=== PATIENT | female | born 1990 | race Caucasian/White ===

== ENCOUNTER 2018-06-10 06:26 | Inpatient (IN) ==
[2018-06-10] MEDS ORDERED: Sod Chloride 0.9% Inj 1,000 ML IV.CONT SCH (07:15)
[2018-06-10 07:29] LABS: Baso % (Auto) 0.4 % (0.0-2.0); Eos # (Auto) 0.1 th/mm3 (0.0-0.4); Hematocrit 43.7 % (35.0-46.0); Hemoglobin 15.3 gm/dL (11.6-15.3); Lymph % (Auto) 27.8 % (9.0-44.0); Mean Corpuscular HGB Conc 34.9 % (32.0-36.0); Mean Corpuscular Hemoglobin 32.7 pg (27.0-34.0); Mean Corpuscular Volume 93.7 fL (80.0-100.0); Mean Platelet Volume 8.1 fL (7.0-11.0); Mono % (Auto) 8.9 % (0.0-8.0); Neut # (Auto) 6.7 th/mm3 (1.8-7.7); Neut % (Auto) 61.9 % (16.0-70.0); Platelet Count 229 th/mm3 (150-450); Red Blood Count 4.66 mil/mm3 (4.00-5.30); Red Cell Distribution Width 13.6 % (11.6-17.2); White Blood Count 10.8 th/mm3 (4.0-11.0)
--- NOTE | 2018-06-10 07:29 | CT ---
EXAM DATE: 06/10/2018 7:22 AM EST AGE/SEX: 28 years / Female INDICATIONS: Stroke alert, right extremity weakness. CLINICAL DATA: This is the patient's initial encounter. Patient reports that signs and symptoms have been present for 1 day and indicates a pain score of Nonresponsive. MEDICAL/SURGICAL HISTORY: Non-responsive. Non-responsive. RADIATION DOSE: 56.35 CTDI (mGy) COMPARISON: [facility] [place], CT BRAIN W/O CONTRAST, 10/31/2012. . TECHNIQUE: CT of the head without contrast. Using automated exposure control and adjustment of the mA and/or kV according to patient size, radiation dose was kept as low as reasonably achievable to ob tain optimal diagnostic quality images. DICOM format image data is available electronically for revi ew and comparison. FINDINGS: Cerebrum: The ventricles are normal for age. No evidence of midline shift, mass lesion, hemorrhage or acute infarction. No extraaxial fluid collections are seen. Posterior Fossa: The cerebellum and brainstem are intact. The 4th ventricle is midline. The cerebe llopontine angle is unremarkable. Extracranial: The visualized portion of the orbits is intact. Skull: The calvaria is intact. No evidence of skull fracture. CONCLUSION: No acute intracranial findings Report was called by [Yanci to Luis Armando at 7:26 AM ] Electronically signed by: Denny Pete MD Board Certified Radiologist 06/10/2018 7:28 AM EST
--- NOTE | 2018-06-10 07:49 | CT ---
EXAM DATE: 06/10/2018 7:41 AM EST AGE/SEX: 28 years / Female INDICATIONS: Stroke alert, right extremity weakness. CLINICAL DATA: This is the patient's initial encounter. Patient reports that signs and symptoms have been present for 1 day and indicates a pain score of Nonresponsive. MEDICAL/SURGICAL HISTORY: Non-responsive. Non-responsive. RADIATION DOSE: 9.76 CTDI (mGy) ; Combined studies COMPARISON: [facility], CTA NECK W CONTRAST W 3D, 06/10/2018. . TECHNIQUE: Volumetric scanning was performed using a multi-row detector CT scanner during bolus infu lester of 75 ml Visipaque 320 (iodixanol) nonionic water-soluble contrast as a cumulative dose for mul tiple exams. The data was post processed with a variety of visualization algorithms including full volume maximum intensity projection, multi-planar sliding thin slab reformation, curved planar reform ation, and surface rendering techniques. Using automated exposure control and adjustment of the mA a nd/or kV according to patient size, radiation dose was kept as low as reasonably achievable to obtain optimal diagnostic quality images. DICOM format image data is available electronically for review a nd comparison. FINDINGS: There is excellent visualization of the major intracranial arteries out to the second-order branch ve ssels. There is no evidence for aneurysm, vessel truncation or stenosis, and no evidence for vascula r malformation. CONCLUSION: 1. Unremarkable CTA examination of the head. Specifically, no evidence for large vessel occlusion. Report was called by [ ]Dr. Laws to Dr. Patel at 7:45 AM. Electronically signed by: Ulises Woo MD Board Certified Radiologist 06/10/2018 7:47 AM MALIHA Wren
--- NOTE | 2018-06-10 08:07 | CT ---
EXAM DATE: 06/10/2018 8:02 AM EST AGE/SEX: 28 years / Female INDICATIONS: Stroke alert, right extremity weakness. CLINICAL DATA: This is the patient's initial encounter. Patient reports that signs and symptoms have been present for 1 day and indicates a pain score of Nonresponsive. MEDICAL/SURGICAL HISTORY: Non-responsive. Non-responsive. RADIATION DOSE: 9.76 CTDI (mGy) ; Combined studies COMPARISON: No prior exams available for comparison. TECHNIQUE: Volumetric scanning was performed using a multirow detector CT scanner during bolus infus ion of 75 ml Visipaque 320 (iodixanol) nonionic water-soluble contrast as a cumulative dose for mult iple exams. The data was postprocessed with a variety of visualization algorithms including full-vo lume maximum intensity projection, multiplanar sliding thin-slab reformation, curved-planar reformati on, and surface-rendering techniques. Using automated exposure control and adjustment of the mA and/ or kV according to patient size, radiation dose was kept as low as reasonably achievable to obtain op timal diagnostic quality images. DICOM format image data is available electronically for review and comparison. Percent stenosis is calculated using the diameter of the stenotic region over the diameter of the nor mal distal internal carotid artery. FINDINGS: Aortic Arch: The left vertebral artery arises directly from the aortic arch as a variant of normal. The arch vessels are widely patent. Right Carotid: The common carotid artery is intact. The carotid bulb has a normal configuration wit hout ulceration or narrowing. The internal carotid artery lumen is smooth without stenosis. The ext ernal carotid artery is intact. Left Carotid: The common carotid artery is intact. The carotid bulb has a normal configuration with out ulceration or narrowing. The internal carotid artery lumen is smooth without stenosis. The exte rnal carotid artery is intact. Vertebrals: The vertebral arteries are patent bilaterally, right side dominant. No stenotic lesions are seen. CONCLUSION: Negative CTA Carotid. Electronically signed by: Denny Pete MD Board Certified Radiologist 06/10/2018 8:05 AM EST
[2018-06-10 08:11] LABS: Activated Partial Thrombo Time 31.2 sec (23.4-31.7); INR 1.1 Ratio; Prothrombin Time 11.1 sec (9.8-11.6)
[2018-06-10 08:20] LABS: Anion Gap 6 meq/L (5-15); Blood Urea Nitrogen 8 mg/dL (7-18); Calcium 8.2 mg/dL (8.5-10.1); Carbon Dioxide 23.2 meq/L (21.0-32.0); Chloride 111 meq/L (98-107); Glomerular Filtration Rate 89 mL/min (>89); Glucose,Random 133 mg/dL (74-106); Potassium 3.5 meq/L (3.5-5.1); Sodium 140 meq/L (136-145)
[2018-06-10 08:25] LABS: Creatine Kinase 67 U/L (26-192)
[2018-06-10 08:27] LABS: Bacteria,Urine Occasional /hpf; Bilirubin,Urine Negative (Negative); Color,Urine Yellow (Yellw/Straw); Glucose,Urine (UA) Negative (Negative); Leukocyte Esterase,Urine Negative (Negative); Nitrite,Urine Negative (Negative); Specific Gravity,Urine 1.035 (1.002-1.035); Squamous Epithelial Cell,Urine 17 /hpf (0-5)
[2018-06-10 08:30] LABS: Clarity,Urine Hazy (Clear)
[2018-06-10] MEDS ORDERED: Acetaminophen 325 MG Tablet PO PRN (08:59)
--- NOTE | 2018-06-10 09:07 | MB ---
cc: Brodie Patel MD DATE: 06/10/2018 HISTORY OF PRESENT ILLNESS: This 28-year-old right-handed woman with hypertension. She does take control pills. She has had 1 miscarriage. Otherwise, she has been very healthy. She went to bed fine last night and woke up about 4:30 this morning feeling that her left tongue and face were numb, maybe a little droopy and some weakness on the right side and imbalance. She had some pain in the right cervical region, but otherwise no headache, chest pain or palpitations. She did vomit several times in the ER here. REVIEW OF SYSTEMS: She denies any history of diabetes, hypercholesterolemia, MD, stent, angioplasty, atrial fibrillation, Coumadin cardiac problems, chest pain, palpitations, renal, hepatic, pulmonary disease, thyroid disease, lupus, ulcer, cancer, seizure, stroke. SOCIAL HISTORY: Nonsmoker, occasional drinker. No drugs. Lives with her boyfriend. FAMILY HISTORY: Positive for cancer. Negative for seizure, negative for stroke. Positive for miscarriage in her grandmother. No history of blood clots otherwise. MEDICATIONS AT HOME: 1. Z-Zen. 2. Inhaler. 3. Lexapro. 4. Labetalol dose is unsure. 5. She does not take an aspirin a day or any blood thinners. PHYSICAL EXAMINATION: VITAL SIGNS: On exam, sinus rhythm. Blood pressure 180/120, initially 198/115 to 175/84. There were no carotid bruits. HEART: Regular rate and rhythm. I do not detect a murmur. She is minimally obese. NEUROLOGIC: Pupils are equal. Visual porter are full. Extraocular movements intact without nystagmus. Face is symmetric with normal sensation. Tongue was midline. There is no drift. She had normal strength in upper and lower extremities bilaterally. Toes downgoing bilaterally. No clonus. Pinprick was intact throughout. Cannot test on [id number] or [id number]. Speech is fluent. She is not aphasic. NIH stroke scale was 0. LABORATORY DATA: CBC is normal. UA is pending. Basic metabolic profile: Potassium 5.4, otherwise normal. Glucose 119. Coags are normal CTA, CT, and CTA of the neck, head and CAT scan of the brain read as normal by radiology. Review of the films, I do not see any definite abnormality on the CT. It does appear to be normal. CTA of the head looks to be right vertebral dominant. She has a large anterior/inferior cerebellar artery on the right. No major basilar artery abnormality is noted. The left vertebral system appears to be very small. She gets somewhat of a variant with the right MCA trifurcation early. It is not quite as long segment as on the left. Otherwise, read as normal. CT of the neck read as negative. Review of the films, she is right vertebral dominant, not artery is patent all the way up. The left vertebral artery, although patent, is small. I cannot really see it well intracranially. Unclear if it meets the other vertebral around the basilar. The carotid arteries are robust and normal bilaterally. It looks like the left probably ends in pica. She is in sinus rhythm. IMPRESSION: It sounds like possibly a small brainstem infarct. We will check a STAT MRI of the brain and MR venogram, hypercoagulable screen, and further stroke workup. We gave her an aspirin for now. Keep head of bed flat, IV hydration, keep her blood pressure up. Something else such as MS could be considered, considering her age. We will see what the MRI shows. We will have her stop the control pills if this is in fact a stroke. The patient's NIH stroke scale is 0. She has improved since she got in the ER as she was not given tPA. She was also out of the time window for tPA . MD CARLTON Joyce/sandra , 08:30 AM , 08:39 AM
--- NOTE | 2018-06-10 10:09 | ED ---
HPI General Chief Complaint: Neuro Symptoms/Deficit Stated Complaint: Medical Time Seen by Provider: 06/10/18 06:58 Source: patient and family Limitations: no limitations History of Present Illness HPI Narrative: Patient is a 28-year-old female, past medical history significant for hypertension and depression, who presents with complaint of left -sided facial numbness and tingling with aphasia, and right-sided extremity weakness with difficulty walking in addition to dizziness. She woke up with the symptoms. Last known well was approximately 10 or 11 PM when she went to bed. She denies any recent trauma, fever, chills. She states that the numbness to her face has resolved but she is still having some weakness of the right side extremities though this has improved as well. Onset (ago): hour(s) Location: Reports speech, left face, right arm and right leg History of same: No Severity: moderate Quality: Reports weak and tingling Relieving factors: time Exacerbating factors: none On Anticoagulants: No Treatments Prior to Arrival: Reports none Related Data Home Medications Medication Instructions Recorded Confirmed escitalopram oxalate [Lexapro] 10 mg PO HS 01/16/18 06/10/18 Previous Rx's Medication Instructions Recorded albuterol sulfate 2 inh INHALATION Q4-6H PRN #18 g 01/16/18 labetalol 100 mg PO BID #180 tab 01/16/18 Allergies Allergy/AdvReac Type Severity Reaction Status Date / Time No Known Allergies Allergy Verified 06/10/18 07:05 Review of Systems ROS: all other systems reviewed are negative [facility] Medical History Medical History Anxiety (Acute) History of Paz's palsy (Acute) Depression (Acute) Hypertension (Acute) Surgical History Surgical History History of delivery (Acute) Social History Social History Substance History: No History of Abuse Second Hand Smoke Exposure: No Smoking Status: Never smoker How Often Do You Have a Drink Containing Alcohol: 2 to 4 times a month Recent Travel [facility] within the Last 8 Weeks: No Recent Out of Country Travel within the Last 8 Weeks: No Immunization History Tetanus Immunization: <5 Years Exam Narrative Exam Narrative: GENERAL: Well-appearing female in no acute distress SKIN: Focused skin assessment warm/dry. HEAD: Atraumatic. Normocephalic. EYES: Pupils equal and round. No scleral icterus. No injection or drainage. ENT: No nasal bleeding or discharge. Mucous membranes pink and moist. NECK: Trachea midline. No JVD. CARDIOVASCULAR: Regular rate and rhythm. No murmur appreciated. Intact and equal peripheral pulses. RESPIRATORY: No accessory muscle use. Clear to auscultation. Breath sounds equal bilaterally. GASTROINTESTINAL: Abdomen soft, non-tender, nondistended. Hepatic and splenic margins not palpable. MUSCULOSKELETAL: No obvious deformities. No clubbing. No cyanosis. No edema. NEUROLOGICAL: Awake and alert. No obvious cranial nerve deficits. Right-sided extremity weakness with right upper extremity pronator drift. Some dysmetria with the right upper extremity. Slight dysarthria. No numbness. PSYCHIATRIC: Appropriate mood and affect; insight and judgment normal. Course Initial Documented Vital Signs Temperature 98.5 F 06/10/18 06:35 Pulse Rate 82 06/10/18 06:35 Respiratory Rate 16 06/10/18 06:35 Blood Pressure 198/115 H 06/10/18 06:35 Pulse Oximetry 99 06/10/18 06:35 Last Documented Vital Signs Temperature 98.5 F 06/10/18 06:35 Pulse Rate 77 06/10/18 08:20 Respiratory Rate 20 06/10/18 08:20 Blood Pressure 173/84 H 06/10/18 08:20 Pulse Oximetry 99 06/10/18 08:20 NIH Stroke Scale NIH Stroke Scale Level of Consciousness: 0-Alert Orientation Questions: 0-Answers both correct Responds to Commands: 0-Both tasks correct Gaze Eye Movement: 0-Horizontal movement WNL Visual Diaz: 0-No visual field defect Facial Movement: 0-Normal Motor Functions Arm LEFT: 0-No drift Motor Functions Arm RIGHT: 1-Drift before 10 seconds Motor Functions Leg LEFT: 0-No drift Motor Functions Leg RIGHT: 0-No drift Limb Ataxia: 1-Ataxia in one limb Sensory Loss: 0-No sensory loss Best Language: 0-Normal Articulation: 1-Mild dysarthia Extinction or Inattention Sensory: 0-Absent Total: 3 Quality Measure Queries Stroke Last date observed well: 06/09/18 Last time observed well: 23:00 Medical Decision Making MDM Narrative Medical decision making narrative: Patient is a 28-year-old female who presented with neurological complaints. NIH stroke scale is approximately 3 on arrival with last known well within 24 hours thus stroke alert was activated. CT head and CTA's are unremarkable and patient's complaints continued to improve. She is not a candidate for TPA. She was seen and evaluated by Dr. Patel was planned for admission for further evaluation and management. 0718: Spoke with Dr Patel, neurologist. 0726: Radiology stated the CT Head was unremarkable. Medical Screen Exam Complete: Yes Emergency Medical Condition: Yes Differential Diagnosis Differential Diagnosis: Differential diagnosis includes but is not limited to anxiety, cerebrovascular accident, conversion disorder. Medical Records Medical records reviewed: Yes I reviewed the patient's medical records. Lab Data Lab results reviewed: Yes I reviewed the patient's lab results. Result diagrams: 06/10/18 07:13 06/10/18 07:45 Lab Results 06/10/18 06/10/18 06/10/18 Range/Units 07:13 07:25 07:45 WBC 10.8 (4.0-11.0) th/mm3 RBC 4.66 (4.00-5.30) mil/mm3 Hgb 15.3 (11.6-15.3) gm/dL POC Hgb (Calc) 15.0 (11.6-15.3) g/dL Hct 43.7 (35.0-46.0) % POC Hct 44.0 (35-46.0) % MCV 93.7 (80.0-100.0) fL MCH 32.7 (27.0-34.0) pg MCHC 34.9 (32.0-36.0) % RDW 13.6 (11.6-17.2) % Plt Count 229 (150-450) th/mm3 MPV 8.1 (7.0-11.0) fL Neut % (Auto) 61.9 (16.0-70.0) % Lymph % (Auto) 27.8 (9.0-44.0) % Jefferson % (Auto) 8.9 H (0.0-8.0) % Eos % (Auto) 1.0 (0.0-4.0) % Baso % (Auto) 0.4 (0.0-2.0) % Neut # (Auto) 6.7 (1.8-7.7) th/mm3 Lymph # (Auto) 3.0 (1.0-4.8) th/mm3 Jefferson # (Auto) 1.0 H (0.0-0.9) th/mm3 Eos # (Auto) 0.1 (0.0-0.4) th/mm3 Baso # (Auto) 0.0 (0.0-0.2) th/mm3 WBC Differential . Differential Comment Auto diff final PT 11.1 (9.8-11.6) sec INR 1.1 Ratio APTT 31.2 (23.4-31.7) sec POC Sodium 141 (137-144) mmol/L Sodium (136-145) meq/L POC Potassium 5.4 H (3.6-5.0) mmol/L Potassium (3.5-5.1) meq/L POC Chloride 107 (102-111) mmol/L Chloride (98-107) meq/L Carbon Dioxide (21.0-32.0) meq/L Anion Gap (5-15) meq/L POC BUN 9 (5-21) mg/dL BUN (7-18) mg/dL Creatinine (0.50-1.00) mg/dL POC Creatinine 0.6 (0.6-1.3) mg/dL Estimated GFR (>89) mL/min POC Glucose 119 H (68-110) mg/dL Random Glucose (74-106) mg/dL Calcium (8.5-10.1) mg/dL Total Creatine Kinase (26-192) U/L Troponin I (0.02-0.05) ng/mL Beta HCG, Quant (0-5) mIU/mL Urine Color (Yellw/Straw) Urine Clarity (Clear) Urine pH (5.0-8.5) Ur Specific Aurora (1.002-1.035) Urine Protein (Neg-Trace) mg/dL Urine Glucose (UA) (Negative) mg/dL Urine Ketones (Negative) mg/dL Urine Occult Blood (Negative) Urine Nitrate (Negative) Urine Bilirubin (Negative) Urine Urobilinogen (Less than 2) mg/dL Ur Leukocyte Esterase (Negative) Urine RBC (0-3) /hpf Urine WBC (0-5) /hpf Ur Squamous Epith Cells (0-5) /hpf Urine Bacteria (None) /hpf Micro UA Comment Ur Microscopic Review Urine Culture Comments 06/10/18 06/10/18 06/10/18 Range/Units 07:45 07:45 08:05 WBC (4.0-11.0) th/mm3 RBC (4.00-5.30) mil/mm3 Hgb (11.6-15.3) gm/dL POC Hgb (Calc) (11.6-15.3) g/dL Hct (35.0-46.0) % POC Hct (35-46.0) % MCV (80.0-100.0) fL MCH (27.0-34.0) pg MCHC (32.0-36.0) % RDW (11.6-17.2) % Plt Count (150-450) th/mm3 MPV (7.0-11.0) fL Neut % (Auto) (16.0-70.0) % Lymph % (Auto) (9.0-44.0) % Jefferson % (Auto) (0.0-8.0) % Eos % (Auto) (0.0-4.0) % Baso % (Auto) (0.0-2.0) % Neut # (Auto) (1.8-7.7) th/mm3 Lymph # (Auto) (1.0-4.8) th/mm3 Jefferson # (Auto) (0.0-0.9) th/mm3 Eos # (Auto) (0.0-0.4) th/mm3 Baso # (Auto) (0.0-0.2) th/mm3 WBC Differential Differential Comment PT (9.8-11.6) sec INR Ratio APTT (23.4-31.7) sec POC Sodium (137-144) mmol/L Sodium 140 (136-145) meq/L POC Potassium (3.6-5.0) mmol/L Potassium 3.5 (3.5-5.1) meq/L POC Chloride (102-111) mmol/L Chloride 111 H (98-107) meq/L Carbon Dioxide 23.2 (21.0-32.0) meq/L Anion Gap 6 (5-15) meq/L POC BUN (5-21) mg/dL BUN 8 (7-18) mg/dL Creatinine 0.76 (0.50-1.00) mg/dL POC Creatinine (0.6-1.3) mg/dL Estimated GFR 89 (>89) mL/min POC Glucose (68-110) mg/dL Random Glucose 133 H (74-106) mg/dL Calcium 8.2 L (8.5-10.1) mg/dL Total Creatine Kinase 67 (26-192) U/L Troponin I Less than 0.02 L (0.02-0.05) ng/mL Beta HCG, Quant Less than 1 (0-5) mIU/mL Urine Color Yellow (Yellw/Straw) Urine Clarity Hazy H (Clear) Urine pH 6.0 (5.0-8.5) Ur Specific Aurora 1.035 (1.002-1.035) Urine Protein Negative (Neg-Trace) mg/dL Urine Glucose (UA) Negative (Negative) mg/dL Urine Ketones Negative (Negative) mg/dL Urine Occult Blood Negative (Negative) Urine Nitrate Negative (Negative) Urine Bilirubin Negative (Negative) Urine Urobilinogen Less than 2 (Less than 2) mg/dL Ur Leukocyte Esterase Negative (Negative) Urine RBC Less than 1 (0-3) /hpf Urine WBC Less than 1 (0-5) /hpf Ur Squamous Epith Cells 17 (0-5) /hpf Urine Bacteria Occasional H (None) /hpf Micro UA Comment Culture not ind Ur Microscopic Review Not Reportable Urine Culture Comments Culture not ind Imaging Data Attestation: I personally reviewed and interpreted this imaging study as follows : My impression: No large intracranial hemorrhage. Radiologist's impression: Head CT 06/10/18 07:11 CONCLUSION: No acute intracranial findings Report was called by [Yanci Durán at 7:26 AM ] Head CTA 06/10/18 07:11 CONCLUSION: 1. Unremarkable CTA examination of the head. Specifically, no evidence for large vessel occlusion. Report was called by [ ]Dr. Laws to Dr. Patel at 7:45 AM. Neck CTA 06/10/18 07:11 CONCLUSION: Negative CTA Carotid. ECG Data EKG Prior to Arrival: No Attestation: I personally reviewed and interpreted this ECG as follows: (Sinus rhythm at a rate of [address] or T wave changes.) Discharge Plan Discharge Disposition Patient Disposition: ED Admit(ED Internal Use Only) Discharge Condition Condition: Stable Discharge Order Discharge Orders: ED Use Only Admit Order (Routine); Ordered 06/10/18 Ordered By: Ann Durán Discharge Details Diagnosis: Transient cerebral ischemia Physicians Team ED Provider: Ann Durán Primary Care Provider: Primary Care Ana Robb Attending Provider: Sheri Archer Discharge Interventions Interventions: Vital Signs Last Done: 06/10/18 08:20 Status ED Status: Admitted Observation Patient
[2018-06-10] MEDS: Enoxaparin Inj 30 MG/0.3 ML Syringe SQ SCH (10:23)
--- NOTE | 2018-06-10 11:04 | MR ---
EXAM DATE: 06/10/2018 10:58 AM EST AGE/SEX: 28 years / Female INDICATIONS: CVA. Right sided weakness. CLINICAL DATA: This is the patient's initial encounter. Patient reports that signs and symptoms have been present for 1 day and indicates a pain score of 0/10. MEDICAL/SURGICAL HISTORY: Hypertension. section. COMPARISON: [facility] [place], CTA HEAD W CONTRAST W 3D, 06/10/2018. . TECHNIQUE: Multiplanar, multisequence examination of the brain was performed without and with 10 ml G adavist (gadobutrol) contrast as a single exam dose. FINDINGS: Cerebrum: The ventricles are normal for age. No evidence of midline shift, mass lesion, hemorrhage or acute infarction. No extraaxial fluid collections are seen. The pituitary gland and suprasellar cistern are normal in configuration. White Matter: Scattered punctate areas of focal white matter T2 prolongation which are nonspecific h owever given the patient's age, demyelinating process should be considered. Posterior Fossa: Small focus of restricted diffusion in the upper right cerebellar hemisphere Diffusion Imaging: No focal areas of restricted diffusion are seen. No evidence of acute infarction . Extracranial: The visualized portions of the orbits and paranasal sinuses are unremarkable. Post Contrast: No abnormal areas of parenchymal or dural enhancement. No evidence of blood-brain ba rrier breakdown. CONCLUSION: 1. Likely small early subacute right cerebellar infarct 2. Mild patchy white matter signal change Electronically signed by: Denny Pete MD Board Certified Radiologist 06/10/2018 11:03 AM EST
--- NOTE | 2018-06-10 11:13 | MR ---
EXAM DATE: 06/10/2018 11:08 AM EST AGE/SEX: 28 years / Female INDICATIONS: Stroke. Right sided weakness. CLINICAL DATA: This is the patient's initial encounter. Patient reports that signs and symptoms have been present for 1 day and indicates a pain score of 0/10. MEDICAL/SURGICAL HISTORY: Hypertension. section. COMPARISON: [facility] [place], [place] HEAD W & W/O CONTRAST, 06/10/2018. . TECHNIQUE: MR cerebral venography is performed without and with 10 ml Gadavist (gadobutrol) contrast (cumulative dose for multiple exams). Source images, 3D volume MIP, and sliding thin slab MIP recon structions were reviewed. FINDINGS: The dural venous sinuses are patent. The deep cerebral venous structures are patent and intact. Corti vani surface veins are patent. CONCLUSION: Negative Electronically signed by: Denny Pete MD Board Certified Radiologist 06/10/2018 11:12 AM EST
[2018-06-10 11:24] LABS: Folate 14.9 ng/mL (3.1-17.5); Free T4 (Free Thyroxine) 1.18 ng/dL (0.76-1.46); Vitamin B12 456 pg/mL (193-986)
[2018-06-10] MEDS ORDERED: Gadobutrol PF 10 MMOL/10 ML Vial (for RAD) IV.SIG ONE (12:56)
--- NOTE | 2018-06-10 13:05 | P.HPIM ---
History of Present Illness Primary Care Physician: No Primary Care Physician Chief Complaint: weakness left side History of Present Illness: 28-year-old white female presented with acute onset of left-sided facial numbness tingling and aphasia with right sided weakness. Patient was in her normal state of health yesterday, other than having mild sore throat and URI type symptoms, when she woke this morning she noticed left side of her face was numb with tingling difficulty expressing herself and right- sided weakness she presented to the emergency room where her blood pressures were noted to be 198/115. Patient states she has been out of her blood pressure medications for a couple months because her doctor did not refill them. She is been having mild headache and intractable nausea and vomiting currently. Initial CT of the head in the emergency room was unremarked and she is admitted for further neurologic workup. 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 FAMhx: Mother had a TIA Review of Systems Review of Systems: all other systems reviewed are negative [facility] Medical History Medical History Anxiety (Acute) History of Paz's palsy (Acute) Depression (Acute) Hypertension (Acute) Surgical History Surgical History History of delivery (Acute) Social History Social History Substance History: No History of Abuse Second Hand Smoke Exposure: No Smoking Status: Never smoker How Often Do You Have a Drink Containing Alcohol: 2 to 4 times a month Recent Travel in [facility] within the Last 8 Weeks: No Recent Out of Country Travel within the Last 8 Weeks: No Immunization History Tetanus Immunization: <5 Years Medications and Allergies Allergies Allergy/AdvReac Type Severity Reaction Status Date / Time No Known Allergies Allergy Verified 06/10/18 07:05 Home Medications Medication Instructions Recorded Confirmed Type escitalopram oxalate [Lexapro] 10 mg PO HS 01/16/18 06/10/18 History Active Medications: Active Medications Acetaminophen (Tylenol) 650 mg PO Q4H PRN PRN Reason: Temp > 100.4 Al Hydroxide/Mg Hydroxide (Milk Of Magnesia Liq) 30 ml PO Q12H PRN PRN Reason: Mild Constipation Aspirin (Ecotrin) 325 mg PO DAILY [facility] Last Admin: 06/10/18 09:00 Dose: 325 mg Enoxaparin Sodium (Lovenox Inj) 30 mg SQ Q24H [facility] Last Admin: 06/10/18 10:23 Dose: 30 mg Sodium Chloride (Ns Inj) 1,000 mls @ 70 mls/hr IV.CONT .[id number] [facility] Stop: 06/10/18 21:32 Last Admin: 06/10/18 07:42 Dose: 70 mls/hr Lactulose (Lactulose Liq) 30 ml PO DAILY PRN PRN Reason: SEVERE CONSITIPATION Miscellaneous Medication ([facility] [place] [facility] Information) 1 each OTHER UNSCH X1 PRN PRN Reason: PHARMACY DOCUMENTATION Stop: 06/11/18 08:29 Ondansetron HCl (Zofran Inj) 4 mg IV.PUSH Q6H PRN PRN Reason: NAUSEA OR VOMITING Last Admin: 06/10/18 09:08 Dose: 4 mg Prochlorperazine Edisylate (Compazine Inj) 10 mg IV.PUSH Q6H PRN PRN Reason: NAUSEA OR VOMITING Last Admin: 06/10/18 12:57 Dose: 10 mg Sodium Chloride (Ns Flush) 2 ml IV.FLUSH BID [facility] Last Admin: 06/10/18 10:02 Dose: 2 ml Sodium Chloride (Ns Flush) 2 ml IV.FLUSH PRN PRN PRN Reason: FLUSH AFTER USING IV ACCESS Physical Exam Vital signs: Last Vital Signs Temp 98.5 F 06/10/18 06:35 Pulse 83 06/10/18 11:48 Resp 17 06/10/18 11:48 BP 139/69 06/10/18 11:48 Pulse Ox 99 06/10/18 08:20 Intake & Output 06/08/18 06/09/18 06/10/18 06/11/18 06:59 06:59 06:59 06:59 Weight 81.647 kg 89.2 kg GEN well-developed well-nourished 28-year-old white female awake alert oriented to person time and place, pleasant, currently very nauseated and appears ill HEENT normocephalic atraumatic, Pupils equal reactive, sclerae anicteric, extraocular motion intact, mucosa is moist. posterior pharynx without exudate NECK supple no JVD trachea midline thyroid smooth not enlarged ANT CHEST WALL without mass or tenderness to palpation HEART S1-S2 regular without murmur gallops or clicks LUNGS clear to auscultation without wheeze rales or rhonchi , full symmetric expansion BACK exam is no CVA tenderness or mass ABDOMEN soft obese nondistended positive bowel sounds no guarding rebound rigidity LYMPH NODES no cervical, axillary or inguinal adenopathy noted EXTREMITIES no clubbing cyanosis or significant edema, peripheral pulses palpable +2 NEUROLOGIC cranial nerves II through XII appear grossly intact, strength is 5 out of 5 right, left mild weakness without clonus or rigidity SKIN warm and dry with good turgor, no other rash or sores noted Results Labs CBC & Chem 7: 06/10/18 07:13 06/10/18 07:45 Imaging Impressions Head/Brain Mag Res Venography 06/10/18 00:00 CONCLUSION: Negative Head CT 06/10/18 07:11 CONCLUSION: No acute intracranial findings Report was called by [Yanci Durán at 7:26 AM ] Head CTA 06/10/18 07:11 CONCLUSION: 1. Unremarkable CTA examination of the head. Specifically, no evidence for large vessel occlusion. Report was called by [ ]Dr. Laws to Dr. Patel at 7:45 AM. Neck CTA 06/10/18 07:11 CONCLUSION: Negative CTA Carotid. Head MRI 06/10/18 08:26 CONCLUSION: 1. Likely small early subacute right cerebellar infarct 2. Mild patchy white matter signal change Caprini VTE Risk Assessment Caprini VTE Risk Assessment: Moderate/High Risk (score >= 2) Caprini Risk Assessment Model: Point Value = 1 Point Value = 2 Point Value = 3 Point Value = 5 Age 41-60 Minor surgery BMI > 25 kg/m2 Swollen legs Varicose veins or History of unexplained or recurrent spontaneous Oral contraceptives or hormone replacement Sepsis (< 1 month) Serious lung disease, including pneumonia (< 1 month) Abnormal pulmonary function Acute myocardial infarction Congestive heart failure (< 1 month) History of inflammatory bowel disease Medical patient at bed rest Age 61-74 Arthroscopic surgery Major open surgery (> 45 min) Laparoscopic surgery (> 45 min) Malignancy Confined to bed (> 72 hours) Immobilizing plaster cast Central venous access Age >= 75 History of VTE Family history of VTE Factor V Leiden Prothrombin [id number] Lupus anticoagulant Anticardiolipin antibodies Elevated serum homocysteine Heparin-induced thrombocytopenia Other congenital or acquired thrombophilia Stroke (< 1 month) Elective arthroplasty Hip, pelvis, or leg fracture Acute spinal cord injury (< 1 month) Prophylaxis Regimen: Total Risk Factor Score Risk Level Prophylaxis Regimen 0-1 Low Early ambulation 2 Moderate Order ONE of the following: *Sequential Compression Device (SCD) *Heparin 5000 units SQ BID 3-4 Higher Order ONE of the following medications: *Heparin 5000 units SQ TID *Enoxaparin/Lovenox 40 mg SQ daily (WT < 150 kg, CrCl > 30 mL/min) *Enoxaparin/Lovenox 30 mg SQ daily (WT < 150 kg, CrCl > 10-29 mL/min) *Enoxaparin/Lovenox 30 mg SQ BID (WT < 150 kg, CrCl > 30 mL/min) AND/OR *Sequential Compression Device (SCD) 5 or more Highest Order ONE of the following medications: *Heparin 5000 units SQ TID (Preferred with Epidurals) *Enoxaparin/Lovenox 40 mg SQ daily (WT < 150 kg, CrCl > 30 mL/min) *Enoxaparin/Lovenox 30 mg SQ daily (WT < 150 kg, CrCl > 10-29 mL/min) *Enoxaparin/Lovenox 30 mg SQ BID (WT < 150 kg, CrCl > 30 mL/min) AND *Sequential Compression Device (SCD) Assessment and Plan Plan ACUTE CVA R CEREBELLAR - admit, pt, ot, st, neuro consult, bp control per stroke protocol, hypercoag fernandez in progress, echo pending, aspirin MALGNANT HTN - resume bp control per stroke protocol MEDICAL NONCOMPLIANCE - counselor dormitory re importance of bp meds and discontinuation risks ASTHMA - stable alubterol prn DEPRESSION - cont home lexapro HYPERGLYCEMI - check NAUSEA VOMITING - due to above - supportive care antiemetics as tolerated DVT prophylaxis - sq heparin and scds dispo - home vs rehab pending clinical course
--- NOTE | 2018-06-10 13:36 | OTSOAPIP ---
TIME SESSION COMPLETED: 1300 TREATMENT TIME: 8 MINS. CHART REVIEWED. PATIENT IS A 28 Y/O Female REFERRED TO OCCUPATIONAL THERAPY WITH A DIAGNOSIS OF TRANSIENT ISCHEMIC ATTACK VERSUS CEREBRAL VASCULAR ACCIDENT WITH RIGHT SIDED WEAKNESS, FACIAL DROOP, NAUSEA. HEAD MRI - LIKELY SMALL EARLY SUB-ACUTE RIGHT CEREBELLAR INFARCT MILD PATCH WHITE MATTER SIGNAL CHANGE. PATIENT FOUND IN BED WITH HEAD OF BED FLAT. FAMILY PRESENT. PATIENT REPORTED FEELING NAUSEA AND THEN VOMITED IN AN EMESIS BAG. PATIENT PROVIDED WITH WARM WASHCLOTH TO WASH HER FACE AND THEN PROCEED TO VOMIT AGAIN. NURSING AND STAFF SUBMARINE WARFARE OFFICER YAJAIRA WAS INFORMED. PLAN: WILL ASSESS PATIENT NEXT TREATMENT DAY DUE TO PATIENTS DISCOMFORT. PATIENT AND FAMILY AGREED. INTERDISCIPLINARY COMMUNICATION: STATED ABOVE Therapist: Malia Snyder Signature on file
[2018-06-10 15:59] LABS: Hemoglobin A1c 4.5 % (4.3-6.0)
--- NOTE | 2018-06-10 16:22 | ECHRPT ---
Indication: Cerebral infarction due to embolism of unspecified vertebral artery CONCLUSIONS Normal left ventricular size and wall thickness. The left ventricular systolic function is normal wi th an estimated ejection fraction in the range of 60-65%. Left ventricular diastolic function parameters a re normal. There is moderate tricuspid regurgitation. The estimated pulmonary arterial pressure is 35.8 mmHg. BP: / HR: Rhythm: Sinus MEASUREMENTS (Male / Female) Normal Values Technical Quality:Fair 2D ECHO LV Diastolic Diameter PLAX 4.2 cm 4.2 - 5.9 / 3.9 - 5.3 cm LV Systolic Diameter PLAX 2.7 cm IVS Diastolic Thickness 0.8 cm 0.6 - 1.0 / 0.6 - 0.9 cm LVPW Diastolic Thickness 0.8 cm 0.6 - 1.0 / 0.6 - 0.9 cm LV Relative Wall Thickness 0.4 LVOT Diameter 2.0 cm M-MODE Aortic Root Diameter MM 2.6 cm LA Systolic Diameter MM 3.2 cm LA Ao Ratio MM 1.2 AV Cusp Separation MM 2.2 cm DOPPLER AV Peak Velocity 143.0 cm/s AV Peak Gradient 8.2 mmHg LVOT Peak Velocity 109.0 cm/s LVOT Peak Gradient 4.8 mmHg AV Area Cont Eq pk 2.4 cm Mitral E Point Velocity 80.5 cm/s Mitral A Point Velocity 73.5 cm/s Mitral E to A Ratio 1.1 LV E' Lateral Velocity 12.6 cm/s Mitral E to LV E' Lateral Ratio 6.4 LV E' Septal Velocity 9.5 cm/s Mitral E to LV E' Septal Ratio 8.5 TR Peak Velocity 254.0 cm/s TR Peak Gradient 25.8 mmHg Right Atrial Pressure 10.0 mmHg Pulmonary Artery Systolic Pressu 35.8 mmHg Right Ventricular Systolic Press 35.8 mmHg PV Peak Velocity 115.0 cm/s PV Peak Gradient 5.3 mmHg FINDINGS LEFT VENTRICLE Normal left ventricular size and wall thickness. The left ventricular systolic function is normal wi th an estimated ejection fraction in the range of 60-65%. Left ventricular diastolic function parameters a re normal. No regional wall motion abnormalities are present. RIGHT VENTRICLE Normal right ventricular size and systolic function. LEFT ATRIUM The left atrial size is normal. RIGHT ATRIUM The right atrial size is normal. ATRIAL SEPTUM Normal atrial septal thickness without atrial level shunting by limited color doppler interrogation. AORTA The aortic root and proximal ascending aorta are normal in size on limited imaging. MITRAL VALVE Structurally normal mitral valve. No mitral valve stenosis or regurgitation. AORTIC VALVE Trileaflet aortic valve. No aortic valve stenosis or regurgitation. TRICUSPID VALVE There is moderate tricuspid regurgitation. The estimated pulmonary arterial pressure is 35.8 mmHg. PULMONARY VALVE No pulmonary valve regurgitation or stenosis. VESSELS The inferior vena cava is normal in size. PERICARDIUM No pericardial effusion. Golden Rojas (Electronically Signed) Final Date:10 June 2018 16:21
--- NOTE | 2018-06-10 17:26 | ECG ---
Date Performed: 06/10/2018 Time Performed: 08:16:07 PTAGE: 28 years EKG: Sinus rhythm BORDERLINE LEFT AXIS DEVIATION BORDERLINE ECG NO PREVIOUS TRACING DOCTOR: Shashi Gaffney Interpretating Date/Time 06/10/2018 17:24:53
[2018-06-10 23:04] LABS: Amphetamine Screen,Urine Neg (Neg); Barbiturate Screen,Urine Neg (Neg); Cannabinoid Screen,Urine Neg (Neg); Cocaine Screen,Urine Neg (Neg)
[2018-06-10 23:22] LABS: Opiate Screen,Urine Neg (Neg)
[2018-06-10] MEDS: Escitalopram 10 MG Tablet PO SCH (23:58)
[2018-06-11 06:55] LABS: Chol/HDL Ratio 2.73 Ratio; HDL Cholesterol 55.6 mg/dL (40.0-60.0)
--- NOTE | 2018-06-11 07:44 | P.PNNEU ---
Subjective Active Medications: Active Medications Acetaminophen (Tylenol) 650 mg PO Q4H PRN PRN Reason: Temp > 100.4 Al Hydroxide/Mg Hydroxide (Milk Of Magnesia Liq) 30 ml PO Q12H PRN PRN Reason: Mild Constipation Albuterol (Ventolin Hfa Inh) 2 puff INH Q4H PRN PRN Reason: shortness of breath Aspirin (Ecotrin) 325 mg PO DAILY [facility] Last Admin: 06/10/18 09:00 Dose: 325 mg Enoxaparin Sodium (Lovenox Inj) 30 mg SQ Q24H [facility] Last Admin: 06/10/18 10:23 Dose: 30 mg Escitalopram Oxalate (Lexapro) 10 mg PO HS [facility] Last Admin: 06/10/18 23:58 Dose: Not Given Lactulose (Lactulose Liq) 30 ml PO DAILY PRN PRN Reason: SEVERE CONSITIPATION Miscellaneous Medication ([facility] [place] Pharmacy Information) 1 each OTHER UNSCH X1 PRN PRN Reason: PHARMACY DOCUMENTATION Stop: 06/11/18 08:29 Ondansetron HCl (Zofran Inj) 4 mg IV.PUSH Q6H PRN PRN Reason: NAUSEA OR VOMITING Last Admin: 06/10/18 09:08 Dose: 4 mg Prochlorperazine Edisylate (Compazine Inj) 10 mg IV.PUSH Q6H PRN PRN Reason: NAUSEA OR VOMITING Last Admin: 06/10/18 22:37 Dose: 10 mg Sodium Chloride (Ns Flush) 2 ml IV.FLUSH BID [facility] Last Admin: 06/10/18 22:47 Dose: 2 ml Sodium Chloride (Ns Flush) 2 ml IV.FLUSH PRN PRN PRN Reason: FLUSH AFTER USING IV ACCESS Allergies/Adverse Reactions: Allergies Allergy/AdvReac Type Severity Reaction Status Date / Time No Known Allergies Allergy Verified 06/10/18 07:05 Physical Exam Vital signs: Vital Signs 06/10/18 07:47 06/10/18 08:20 06/10/18 11:08 Temperature Pulse Rate 77 68 Respiratory Rate 20 18 Blood Pressure 175/84 H 173/84 H 151/86 H Pulse Oximetry 99 06/10/18 11:48 06/10/18 15:00 06/10/18 16:00 Temperature 98.1 F Pulse Rate 83 71 Respiratory Rate 17 16 Blood Pressure 139/69 156/79 H Pulse Oximetry 95 94 L 06/10/18 21:00 06/11/18 01:10 06/11/18 05:05 Temperature 98.2 F 98 F 98 F Pulse Rate 93 H 88 85 Respiratory Rate Blood Pressure 170/95 H 162/112 H 169/98 H Pulse Oximetry 93 L 91 L 96 Intake & Output 06/10/18 06/11/18 06/11/18 18:59 06:59 18:59 Intake Total 720 / 720 1000 / 1000 Balance 720 / 720 1000 / 1000 Weight 89.2 kg 88.7 kg Intake: IV 1000 / 1000 NS Inj 1,000 ML @ 70 mls/hr IV. 1000 / 1000 CONT .[id number] [facility] Rx#:[id number] Oral 0 / 0 Other 720 / 720 Other: Other Intake Source Saline Solution # Voids 1 # Incontinent Voids 1 Weight On Admission 88.7 kg Narrative: sr vff no nystag face sym 5/5 bue ble not ataxic fing to nose Objective Laboratory Results - last 24 hr 06/10/18 06/10/18 06/10/18 07:13 07:45 07:45 ESR PT 11.1 INR 1.1 APTT 31.2 Sodium 140 Potassium 3.5 Chloride 111 H Carbon Dioxide 23.2 Anion Gap 6 BUN 8 Creatinine 0.76 Estimated GFR 89 Random Glucose 133 H Hemoglobin A1c 4.5 Calcium 8.2 L Total Creatine Kinase 67 Troponin I Less than 0.02 L C-Reactive Protein Total Protein (PEP) Triglycerides Cholesterol LDL Cholesterol, Calc HDL Cholesterol Cholesterol/HDL Ratio Vitamin B12 Folate TSH Free T4 Beta HCG, Quant Urine Color Urine Clarity Urine pH Ur Specific [place] Urine Protein Urine Glucose (UA) Urine Ketones Urine Occult Blood Urine Nitrate Urine Bilirubin Urine Urobilinogen Ur Leukocyte Esterase Urine RBC Urine WBC Ur Squamous Epith Cells Urine Bacteria Micro UA Comment Ur Microscopic Review Urine Culture Comments Urine Opiates Screen Ur Barbiturates Screen Ur Amphetamines Screen U Benzodiazepines Scrn Urine Cocaine Screen U Cannabinoids Screen Rheumatoid Factor Scrn Rheumatoid Factor Titer 06/10/18 06/10/18 06/10/18 07:45 08:05 08:05 ESR PT INR APTT Sodium Potassium Chloride Carbon Dioxide Anion Gap BUN Creatinine Estimated GFR Random Glucose Hemoglobin A1c Calcium Total Creatine Kinase Troponin I C-Reactive Protein Total Protein (PEP) Triglycerides Cholesterol LDL Cholesterol, Calc HDL Cholesterol Cholesterol/HDL Ratio Vitamin B12 Folate TSH Free T4 Beta HCG, Quant Less than 1 Urine Color Yellow Urine Clarity Hazy H Urine pH 6.0 Ur Specific [place] 1.035 Urine Protein Negative Urine Glucose (UA) Negative Urine Ketones Negative Urine Occult Blood Negative Urine Nitrate Negative Urine Bilirubin Negative Urine Urobilinogen Less than 2 Ur Leukocyte Esterase Negative Urine RBC Less than 1 Urine WBC Less than 1 Ur Squamous Epith Cells 17 Urine Bacteria Occasional H Micro UA Comment Culture not ind Ur Microscopic Review Not Reportable Urine Culture Comments Culture not ind Urine Opiates Screen Neg Ur Barbiturates Screen Neg Ur Amphetamines Screen Neg U Benzodiazepines Scrn Neg Urine Cocaine Screen Neg U Cannabinoids Screen Neg Rheumatoid Factor Scrn Rheumatoid Factor Titer 06/10/18 06/10/18 06/11/18 10:00 10:00 06:06 ESR 4 PT INR APTT Sodium Potassium Chloride Carbon Dioxide Anion Gap BUN Creatinine Estimated GFR Random Glucose Hemoglobin A1c Calcium Total Creatine Kinase 50 Troponin I C-Reactive Protein Less than 0.29 Total Protein (PEP) 7.4 Triglycerides 98 Cholesterol 152 LDL Cholesterol, Calc 77 HDL Cholesterol 55.6 Cholesterol/HDL Ratio 2.73 Vitamin B12 456 Folate 14.9 TSH 1.090 Free T4 1.18 Beta HCG, Quant Urine Color Urine Clarity Urine pH Ur Specific [place] Urine Protein Urine Glucose (UA) Urine Ketones Urine Occult Blood Urine Nitrate Urine Bilirubin Urine Urobilinogen Ur Leukocyte Esterase Urine RBC Urine WBC Ur Squamous Epith Cells Urine Bacteria Micro UA Comment Ur Microscopic Review Urine Culture Comments Urine Opiates Screen Ur Barbiturates Screen Ur Amphetamines Screen U Benzodiazepines Scrn Urine Cocaine Screen U Cannabinoids Screen Rheumatoid Factor Scrn Negative Rheumatoid Factor Titer Not Reportable Review/Management - Review/Management Plan: imp sr so far r pica cva r vert dom echo nl ldl trop esr nl hyper and other labs pend asa 325 needs mandi oob ok mrv nl mri small old subcortical wm change on r parietal also consider loop also
[2018-06-11 10:47] LABS: Anti-Nuclear Antibody Screen Neg (Neg)
--- NOTE | 2018-06-11 11:31 | P.PNIM ---
Subjective Interval history: Follow-up visit CVA, HTN. Patient seen and examined today. Boyfriend at bedside. Patient states that she knows she has hypertension but was off of her medication for quite some time now as she states that it is being given to her by the [facility] doctor. States that they had tried to investigate what is causing her hypertension but was not able to find out the cost. States that she had urine testing that has also been done. Admits to taking contraceptive about 4 months ago. Denies smoking. Denies family history of strokes. Reports mother has hypertension, also had mini strokes. States that grandmother has cardiomyopathy. Otherwise does not know any family history of early onset strokes. Physical Exam Vital signs: Vital Signs 06/10/18 11:48 06/10/18 15:00 06/10/18 16:00 Temperature 98.1 F Pulse Rate 83 71 Respiratory Rate 17 16 Blood Pressure 139/69 156/79 H Pulse Oximetry 95 94 L 06/10/18 21:00 06/11/18 01:10 06/11/18 05:05 Temperature 98.2 F 98 F 98 F Pulse Rate 93 H 88 85 Respiratory Rate 18 18 18 Blood Pressure 170/95 H 162/112 H 169/98 H Pulse Oximetry 93 L 91 L 96 06/11/18 07:41 06/11/18 08:15 Temperature 98.1 F Pulse Rate 91 H Respiratory Rate 20 Blood Pressure 180/87 H Pulse Oximetry 93 L 96 Intake & Output 06/10/18 06/11/18 06/11/18 18:59 06:59 18:59 Intake Total 720 / 720 1000 / 1000 Balance 720 / 720 1000 / 1000 Weight 89.2 kg 88.7 kg Intake: IV 1000 / 1000 NS Inj 1,000 ML @ 70 mls/hr IV. 1000 / 1000 CONT .[id number] [facility] Rx#:[id number] Oral 0 / 0 Other 720 / 720 Other: Other Intake Source Saline Solution # Voids 1 4 # Incontinent Voids 1 Weight On Admission 88.7 kg Narrative: GENERAL: This is a overweight, well-developed patient, in no apparent distress. SKIN: Warm and dry. HEENT: Normocephalic. Pupils equal round and reactive. Nose without bleeding. Airway patent. NECK: Trachea midline. No JVD. Supple. CARDIOVASCULAR: Regular rate and rhythm without murmurs, gallops, or rubs. RESPIRATORY: Clear to auscultation. Breath sounds equal bilaterally. No wheezes , rales, or rhonchi. GASTROINTESTINAL: Abdomen soft, non-tender, nondistended. Bowel Sounds normoactive x4. MUSCULOSKELETAL: Extremities without clubbing, cyanosis, or edema. NEUROLOGICAL: Awake and alert. Oriented to time, place, person. No focal neuro deficit. Moves all extremities, reports right UE minimal weakness, grasp are equal strength is equal. Normal speech. No ataxic gait, able to ambulate. Results - Labs CBC & Chem 7: 06/10/18 07:13 06/10/18 07:45 Laboratory Results - last 24 hr 06/10/18 06/10/18 06/10/18 07:13 08:05 10:00 Hemoglobin A1c 4.5 Total Creatine Kinase Triglycerides Cholesterol LDL Cholesterol, Calc HDL Cholesterol Cholesterol/HDL Ratio Urine Opiates Screen Neg Ur Barbiturates Screen Neg Ur Amphetamines Screen Neg U Benzodiazepines Scrn Neg Urine Cocaine Screen Neg U Cannabinoids Screen Neg RAMAN Screen Neg RPR Nonreactive 06/11/18 06:06 Hemoglobin A1c Total Creatine Kinase 50 Triglycerides 98 Cholesterol 152 LDL Cholesterol, Calc 77 HDL Cholesterol 55.6 Cholesterol/HDL Ratio 2.73 Urine Opiates Screen Ur Barbiturates Screen Ur Amphetamines Screen U Benzodiazepines Scrn Urine Cocaine Screen U Cannabinoids Screen RAMAN Screen RPR Assessment and Plan - Plan 28-year-old white female presented with acute onset of left-sided facial numbness tingling and aphasia with right sided weakness. Acute stroke, small right cerebellar infarct -Head/brain venography negative, head CT no acute intracranial findings, head CTA unremarkable, neck CTA negative CTA carotid. -Neurologist consulted. Recommends permissive hypertension today, lowering blood pressure by tomorrow 120-140. Recommends RAMEZ.May consider loop recorder -Start patient on aspirin 325, -Echocardiogram showed left ventricular systolic function is normal with EF 60-65%. Left ventricular diastolic function are normal. Moderate tricuspid regurgitation -Lipid profile within normal, B12 normal, folic acid normal, TSH normal, UA normal, toxicology negative. -Pending hypercoagulable studies and other immunology studies -PT/OT/ST eval and treat. ST recommend regular consistency cardiac diet, thin liquids HTN, malignant -Counseling on BP medication compliance. Counseling on discontinuation risk as patient has been on BP meds. -Counseled also she is taking contraception medication -Monitor BP trend. -For BP control, will start patient on norvasc, titrate to 120-140s Asthma, history not in exacerbation -Duo nebs as needed Depression -Dose Lexapro Hyperglycemia -Check hemoglobin A1c Full code. DVT prop Lovenox Discussed Condition With: Patient, nursing, Dr. Ardon Discharge Planning: Plan to DC home when clinically improved. Possibly in 1-2 days
[2018-06-11] MEDS: Enoxaparin Inj 30 MG/0.3 ML Syringe SQ SCH (11:42)
[2018-06-11] MEDS ORDERED: amLODIPine 5 MG Tablet PO ONE (15:57)
[2018-06-11] MEDS: Escitalopram 10 MG Tablet PO SCH (20:14)
--- NOTE | 2018-06-11 21:35 | MB ---
cc: Will Vasquez MD DATE: 06/11/2018 HISTORY OF PRESENT ILLNESS: Alejandra is a very pleasant 28-year-old lady. Dr. Patel requested a RAMEZ. The patient denies dysphagia or chest pain. Otherwise, denies any fevers, chills, cough, GI or bleeding, PND, orthopnea, syncope, or dizziness. The patient presented on 06/10/2018 with left-sided facial numbness and tingling with aphasia, right-sided extremity weakness with difficulty walking in addition to dizziness. PAST MEDICAL HISTORY: As per history of present illness. She has a history of anxiety, depression, Paz palsy, hypertension, delivery. ALLERGIES: NONE. SOCIAL HISTORY: Denies tobacco use. Drinks alcohol 2-4 times a month. MEDICATIONS: In the hospital: 1. Norvasc 5 mg daily. 2. Aspirin 325 daily. 3. Lovenox 30 mg subcutaneous 24 hours. PHYSICAL EXAMINATION: VITAL SIGNS: Pulse 91, temperature 98.5, respiratory rate 20, blood pressure 178/91, saturations 96% on room air. GENERAL: She is alert and oriented x3, in no acute distress. NECK: Supple. No JVD. No bruit. CARDIOVASCULAR: S1, S2. No murmurs, rubs, or gallops. LUNGS: Clear to auscultation bilaterally. ABDOMEN: Soft, nontender, nondistended with positive bowel sounds. EXTREMITIES: No lower extremity edema. LABORATORY DATA: Echocardiogram 06/10/2018: EF 60% to 65%, moderate TR, PA systolic pressure of 35.8 mmHg. Head and brain magnetic resonance venography: Negative. EKG: Normal sinus rhythm at 71 beats per minute, otherwise normal. Head CT: No acute intracranial findings. Head CTA: Unremarkable CTA examination of the head; specifically, no evidence for large vessel occlusion. Neck CTA: Negative CT of the carotid. Head MRI: Likely small early subacute right cerebellar infarct, mild patchy white matter signal change. White count 10.8, hemoglobin 15.3, hematocrit 43.7, platelet count 229. INR is 1.1. Sodium 140, potassium 3.5, chloride 111, bicarbonate 23.2, BUN 8, creatinine 0.76. Troponin less than 0.02. CK negative x2. LDL is 77. TSH is 1.090. Beta hCG less than 1. Toxicology is negative. DIAGNOSIS: Cerebrovascular accident. DISCUSSION: I discussed the risks and benefits of RAMEZ with the patient. She denies dysphagia. PLAN: RAMEZ on 06/12/2018, schedule permitting. Will Vasquez MD AWBrad/ts , 08:56 PM , 09:03 PM
[2018-06-12] MEDS: amLODIPine 5 MG Tablet PO SCH (09:11)
[2018-06-12] MEDS: Enoxaparin Inj 30 MG/0.3 ML Syringe SQ SCH (09:11)
[2018-06-12 09:46] LABS: Hemoglobin A1c 4.6 % (4.3-6.0)
--- NOTE | 2018-06-12 10:44 | P.PNNEU ---
Subjective Subjective Comments: Cross cover. Active Medications: Active Medications Acetaminophen (Tylenol) 650 mg PO Q4H PRN PRN Reason: Temp > 100.4 Al Hydroxide/Mg Hydroxide (Milk Of Magnesia Liq) 30 ml PO Q12H PRN PRN Reason: Mild Constipation Albuterol (Ventolin Hfa Inh) 2 puff INH Q4H PRN PRN Reason: shortness of breath Amlodipine Besylate (Norvasc) 5 mg PO DAILY [facility] Last Admin: 06/12/18 09:11 Dose: 5 mg Aspirin (Ecotrin) 325 mg PO DAILY [facility] Last Admin: 06/12/18 09:11 Dose: 325 mg Clonidine HCl (Catapres) 0.1 mg PO Q6H PRN PRN Reason: SYS BP GREATER THAN 160 [facility] Last Admin: 06/12/18 10:18 Dose: 0.1 mg Enalaprilat (Vasotec Inj) 1.25 mg IV.PUSH Q6H PRN PRN Reason: SBP>160, DBP>90 Enoxaparin Sodium (Lovenox Inj) 30 mg SQ Q24H [facility] Last Admin: 06/12/18 09:11 Dose: 30 mg Escitalopram Oxalate (Lexapro) 10 mg PO HS [facility] Last Admin: 06/11/18 20:14 Dose: 10 mg Labetalol HCl (Trandate) 100 mg PO BID [facility] Lactulose (Lactulose Liq) 30 ml PO DAILY PRN PRN Reason: SEVERE CONSITIPATION Ondansetron HCl (Zofran Inj) 4 mg IV.PUSH Q6H PRN PRN Reason: NAUSEA OR VOMITING Last Admin: 06/10/18 09:08 Dose: 4 mg Prochlorperazine Edisylate (Compazine Inj) 10 mg IV.PUSH Q6H PRN PRN Reason: NAUSEA OR VOMITING Last Admin: 06/10/18 22:37 Dose: 10 mg Sodium Chloride (Ns Flush) 2 ml IV.FLUSH BID [facility] Last Admin: 06/12/18 09:11 Dose: 2 ml Sodium Chloride (Ns Flush) 2 ml IV.FLUSH PRN PRN PRN Reason: FLUSH AFTER USING IV ACCESS Allergies/Adverse Reactions: Allergies Allergy/AdvReac Type Severity Reaction Status Date / Time No Known Allergies Allergy Verified 06/10/18 07:05 Review of Systems All other systems reviewed negative except as stated in HPI Physical Exam Vital signs: Vital Signs 06/11/18 16:00 06/11/18 17:06 06/11/18 20:00 Temperature 98.7 F Pulse Rate 102 H Respiratory Rate 18 Blood Pressure 178/91 H 167/115 H Pulse Oximetry 96 96 06/12/18 00:00 06/12/18 05:00 06/12/18 08:00 Temperature 97.5 F L 98 F 97.9 F Pulse Rate 82 71 78 Respiratory Rate 18 18 20 Blood Pressure 120/60 184/96 H 192/101 H Pulse Oximetry 93 L 93 L 96 06/12/18 09:19 Temperature Pulse Rate Respiratory Rate Blood Pressure Pulse Oximetry 97 Intake & Output 06/11/18 06/12/18 06/12/18 18:59 06:59 18:59 Intake Total 500 / 500 Balance 500 / 500 Weight 86.7 kg Intake: Oral 500 / 500 Other: # Voids 0 # Bowel Movements 1 Narrative: GENERAL: No acute distress, mildly obese SKIN: Warm and dry. HEENT: Normocephalic. NECK: Trachea midline. No JVD. Supple. CARDIOVASCULAR: Regular rate and rhythm RESPIRATORY: No accessory muscle use GASTROINTESTINAL: Abdomen soft, non-tender, nondistended. MUSCULOSKELETAL: Extremities without clubbing, cyanosis, or edema. NEUROLOGICAL: Awake and alert. Oriented x3, - Constitutional no acute distress - Routine HEENT Exam Head: Present: normocephalic Eye: Present: EOMI Objective Laboratory Results - last 24 hr 06/10/18 06/10/18 06/11/18 10:00 10:00 12:33 Hemoglobin A1c 4.6 Homocysteine Cardiovas 8.0 RAMAN Screen Neg Review/Management - Diagnosis (1) Acute ischemic vertebrobasilar artery cerebellar stroke Code(s): I63.29 - Cerebral infarction due to unspecified occlusion or stenosis of other precerebral arteries Status: Acute Current Visit: Yes - Review/Management Plan: imp sr so far r pica cva r vert dom echo nl ldl trop esr nl hyper and other labs pend asa 325 needs mandi oob ok mrv nl mri small old subcortical wm change on r parietal also consider loop also
--- NOTE | 2018-06-12 12:35 | P.PNIM ---
Subjective Interval history: Blood pressure elevated this morning. RAMEZ planned for today. No new complaints from the patient. No neurological deficits. Physical Exam Vital signs: Last Vital Signs Temp 97.9 F 06/12/18 08:00 Pulse 78 06/12/18 08:00 Resp 20 06/12/18 08:00 BP 192/101 H 06/12/18 08:00 Pulse Ox 97 06/12/18 09:19 Intake & Output 06/10/18 06/11/18 06/12/18 06/13/18 06:59 06:59 06:59 06:59 Intake Total 1720 / 1720 500 / 500 Balance 1720 / 1720 500 / 500 Weight 81.647 kg 88.7 kg 86.7 kg Narrative: GENERAL: NAD, A&Ox3 HEAD: Normocephalic. NECK: Supple, trachea midline. No lymphadenopathy. EYES: No scleral icterus. No injection or drainage. CARDIOVASCULAR: Regular rate and rhythm without murmurs, gallops, or rubs. RESPIRATORY: Breath sounds equal bilaterally. No accessory muscle use. GASTROINTESTINAL: Abdomen soft, non-tender, nondistended. MUSCULOSKELETAL: No cyanosis, or edema. SKIN: Warm and dry. NEURO: No focal neurological deficits. Results Labs CBC & Chem 7: 06/10/18 07:13 06/10/18 07:45 Assessment and Plan (1) Acute ischemic vertebrobasilar artery cerebellar stroke: Code(s): I63.29 - Cerebral infarction due to unspecified occlusion or stenosis of other precerebral arteries Status: Acute Plan 28-year-old white female presented with acute onset of left-sided facial numbness tingling and aphasia with right sided weakness. Acute CVA Small right cerebellar infarct Etiology likely related to hormonal control control discontinued control needed in the future patient is recommended to pursue copper IUD RAMEZ planned for today Continue aspirin Neurology following Hypertensive urgency Uncontrolled HTN Patient's baseline medications resumed Lopressor 100 mg p.o. twice daily Continue amlodipine PRN clonidine Asthma No exacerbation Continue duo nebs as needed History of depression Continue Lexapro DVT prophylaxis Lovenox Progress Note: Quality VTE Deep Vein Thrombosis/Pulmonary Embolism Present on Admission: No
--- NOTE | 2018-06-12 13:16 | P.PNCA ---
Subjective Interval history: alert in nad Medications and Allergies Active Medications: Active Medications Acetaminophen (Tylenol) 650 mg PO Q4H PRN PRN Reason: Temp > 100.4 Al Hydroxide/Mg Hydroxide (Milk Of Magnesia Liq) 30 ml PO Q12H PRN PRN Reason: Mild Constipation Albuterol (Ventolin Hfa Inh) 2 puff INH Q4H PRN PRN Reason: shortness of breath Amlodipine Besylate (Norvasc) 5 mg PO DAILY [facility] Last Admin: 06/12/18 09:11 Dose: 5 mg Aspirin (Ecotrin) 325 mg PO DAILY [facility] Last Admin: 06/12/18 09:11 Dose: 325 mg Clonidine HCl (Catapres) 0.1 mg PO Q6H PRN PRN Reason: SYS BP GREATER THAN 160 [facility] Last Admin: 06/12/18 10:18 Dose: 0.1 mg Enalaprilat (Vasotec Inj) 1.25 mg IV.PUSH Q6H PRN PRN Reason: SBP>160, DBP>90 Enoxaparin Sodium (Lovenox Inj) 30 mg SQ Q24H [facility] Last Admin: 06/12/18 09:11 Dose: 30 mg Escitalopram Oxalate (Lexapro) 10 mg PO HS [facility] Last Admin: 06/11/18 20:14 Dose: 10 mg Labetalol HCl (Trandate) 100 mg PO BID [facility] Lactulose (Lactulose Liq) 30 ml PO DAILY PRN PRN Reason: SEVERE CONSITIPATION Ondansetron HCl (Zofran Inj) 4 mg IV.PUSH Q6H PRN PRN Reason: NAUSEA OR VOMITING Last Admin: 06/10/18 09:08 Dose: 4 mg Prochlorperazine Edisylate (Compazine Inj) 10 mg IV.PUSH Q6H PRN PRN Reason: NAUSEA OR VOMITING Last Admin: 06/10/18 22:37 Dose: 10 mg Sodium Chloride (Ns Flush) 2 ml IV.FLUSH BID [facility] Last Admin: 06/12/18 09:11 Dose: 2 ml Sodium Chloride (Ns Flush) 2 ml IV.FLUSH PRN PRN PRN Reason: FLUSH AFTER USING IV ACCESS Allergies Allergy/AdvReac Type Severity Reaction Status Date / Time No Known Allergies Allergy Verified 06/10/18 07:05 Home Medications Medication Instructions Recorded Confirmed Type escitalopram oxalate [Lexapro] 10 mg PO HS 01/16/18 06/10/18 History Physical Exam Vital signs: Vital Signs 06/11/18 16:00 06/11/18 17:06 06/11/18 20:00 Temperature 98.7 F Pulse Rate 102 H Respiratory Rate 18 Blood Pressure 178/91 H 167/115 H Pulse Oximetry 96 96 06/12/18 00:00 06/12/18 05:00 06/12/18 08:00 Temperature 97.5 F L 98 F 97.9 F Pulse Rate 82 71 78 Respiratory Rate 18 18 20 Blood Pressure 120/60 184/96 H 192/101 H Pulse Oximetry 93 L 93 L 96 06/12/18 09:19 Temperature Pulse Rate Respiratory Rate Blood Pressure Pulse Oximetry 97 Intake & Output 06/11/18 06/12/18 06/12/18 18:59 06:59 18:59 Intake Total 500 / 500 Balance 500 / 500 Weight 86.7 kg Intake: Oral 500 / 500 Other: # Voids 0 # Bowel Movements 1 - Constitutional no acute distress - Routine HEENT Exam Head: Present: normocephalic - Routine Neck Exam Present: supple - Routine Respiratory Exam Present: CTA bilaterally - Routine Cardiovascular Exam Present: S1, S2 - Routine Abdominal Exam Present: soft - Routine Extremities Exam Comments: no yuliet Results 06/10/18 07:13 06/10/18 07:45 Lipids 06/11/18 Range/Units 06:06 Triglycerides 98 (42-150) mg/dL Cholesterol 152 (120-200) mg/dL HDL Cholesterol 55.6 (40.0-60.0) mg/dL Cholesterol/HDL Ratio 2.73 Ratio Intake and Output 06/11/18 06/12/18 06/12/18 22:59 06:59 14:59 Intake Total 500 / 500 Balance 500 / 500 Intake: Oral 500 / 500 Other: # Voids 0 # Bowel Movements 1 Weight 86.7 kg Assessment and Plan - Assessment (1) Acute ischemic vertebrobasilar artery cerebellar stroke Code(s): I63.29 - Cerebral infarction due to unspecified occlusion or stenosis of other precerebral arteries Status: Acute - Plan 1.) CVA - mandi postponed to 06/13/18 due to lack of anesthesia availability
[2018-06-12] MEDS: Labetalol 100 MG Tablet PO SCH ×2 (14:24→21:21)
[2018-06-12] MEDS: Escitalopram 10 MG Tablet PO SCH (21:21)
[2018-06-13 07:53] LABS: Dil Russell Viper Venom Conf ( ND (NEGATIVE); Dil Russell Viper Venom Time M ND (CORRECTED); Lupus Anticoagulant PTT Screen 38 seconds (< OR = 40)
[2018-06-13] MEDS: amLODIPine 5 MG Tablet PO SCH (08:13)
[2018-06-13] MEDS: Labetalol 100 MG Tablet PO SCH ×2 (08:13→21:05)
--- NOTE | 2018-06-13 09:48 | P.PNIM ---
Subjective Interval history: Follow-up visit CVA, HTN. Patient seen and examined today. Plan for RAMEZ scheduled today. States that she is on labetalol 200 mg twice daily with her PCP prior. Discussed with patient that her vital signs has still continued to fluctuate. And will continue to monitor for now but if it improves today and her RAMEZ would be normal she may be able to go home. Patient was really happy and relief as she states that it is the first William of her child. Denies pain and discomfort. Denies SOB/ dyspnea. Denies chest pain, palpitations, headaches, dizziness. Denies fevers, chills, n/v/d. Denies hematuria, dysuria. Physical Exam Vital signs: Vital Signs 06/12/18 16:00 06/12/18 18:07 06/12/18 20:00 Temperature 97.9 F 97.9 F Pulse Rate 80 86 Respiratory Rate 20 20 Blood Pressure 163/105 H 168/103 H Pulse Oximetry 96 96 96 06/12/18 21:20 06/13/18 00:00 06/13/18 04:00 Temperature 97.8 F 98.4 F Pulse Rate 86 68 77 Respiratory Rate 20 20 Blood Pressure 134/82 151/88 H 133/82 Pulse Oximetry 94 L 97 06/13/18 08:00 Temperature 98.4 F Pulse Rate 73 Respiratory Rate 20 Blood Pressure 155/94 H Pulse Oximetry 97 Intake & Output 06/12/18 06/13/18 06/13/18 18:59 06:59 18:59 Intake Total 360 / 360 Balance 360 / 360 Intake: Oral 360 / 360 Other: # Voids 2 2 Narrative: GENERAL: This is a overweight, well-developed patient, in no apparent distress. SKIN: Warm and dry. HEENT: Normocephalic. Pupils equal round and reactive. Nose without bleeding. Airway patent. NECK: Trachea midline. CARDIOVASCULAR: Regular rate and rhythm without murmurs, gallops, or rubs. RESPIRATORY: Clear to auscultation. Breath sounds equal bilaterally. No wheezes , rales, or rhonchi. GASTROINTESTINAL: Abdomen soft, non-tender, nondistended. Bowel Sounds normoactive x4. MUSCULOSKELETAL: Extremities without clubbing, cyanosis, or edema. NEUROLOGICAL: Awake and alert. Oriented to time, place, person. No focal neuro deficit. Moves all extremities. Normal speech. No ataxic gait, able to ambulate. Results - Labs CBC & Chem 7: 06/10/18 07:13 06/10/18 07:45 Laboratory Results - last 24 hr 06/10/18 06/10/18 06/11/18 10:00 10:00 12:33 Thrombin Time ND Lupus Anticoagulant LA PTT Screen 38 dRVVT Screen 37 LA dRVVT Confirm ND dRVVT Mix ND Hexagonal Phase Confirm ND Antithrombin III Activ 104 Factor VIII Activity 49 L Hemoglobin A1c 4.6 Assessment and Plan - Assessment (1) Acute ischemic vertebrobasilar artery cerebellar stroke Code(s): I63.29 - Cerebral infarction due to unspecified occlusion or stenosis of other precerebral arteries Status: Acute - Plan 28-year-old white female presented with acute onset of left-sided facial numbness tingling and aphasia with right sided weakness. Acute stroke, small right cerebellar infarct -Head/brain venography negative, head CT no acute intracranial findings, head CTA unremarkable, neck CTA negative CTA carotid. -Neurologist consulted. Recommends permissive hypertension today, lowering blood pressure by tomorrow 120-140. Recommends RAMEZ.May consider loop recorder -Echocardiogram showed left ventricular systolic function is normal with EF 60-65%. Left ventricular diastolic function are normal. Moderate tricuspid regurgitation -Lipid profile within normal, B12 normal, folic acid normal, TSH normal, UA normal, toxicology negative. -Aspirin 325 -PT/OT/ST eval and treat. ST recommend regular consistency cardiac diet, thin liquids -Etiology likely related to hormonal control. control discontinued - control needed in the future patient is recommended to pursue copper IUD -RAMEZ planned for today HTN, malignant -Counseling on BP medication compliance. Counseling on discontinuation risk as patient has been on BP meds. -Monitor BP trend. -Norvasc 5 mg daily, labetalol 100 mg twice daily. Will adjust medications as necessary. She is also on as needed clonidine. Asthma, history not in exacerbation -Duo nebs as needed Depression - Lexapro Hyperglycemia -hemoglobin A1c 4.6, resolved Full code. DVT prop Lovenox Discussed Condition With: Patient, nurse Discharge Planning: Plan to DC home when clinically improved. Possibly in 1-2 days
--- NOTE | 2018-06-13 11:04 | P.PNNEU ---
Subjective Subjective Comments: No cp, no dyspnea, no blakely, no focal weakness, no vision loss Cross cover Active Medications: Active Medications Acetaminophen (Tylenol) 650 mg PO Q4H PRN PRN Reason: Temp > 100.4 Al Hydroxide/Mg Hydroxide (Milk Of Magnesia Liq) 30 ml PO Q12H PRN PRN Reason: Mild Constipation Albuterol (Ventolin Hfa Inh) 2 puff INH Q4H PRN PRN Reason: shortness of breath Amlodipine Besylate (Norvasc) 5 mg PO DAILY [facility] Last Admin: 06/13/18 08:13 Dose: 5 mg Aspirin (Ecotrin) 325 mg PO DAILY [facility] Last Admin: 06/13/18 08:13 Dose: Not Given Clonidine HCl (Catapres) 0.1 mg PO Q6H PRN PRN Reason: SYS BP GREATER THAN 160 [facility] Last Admin: 06/12/18 19:27 Dose: 0.1 mg Enalaprilat (Vasotec Inj) 1.25 mg IV.PUSH Q6H PRN PRN Reason: SBP>160, DBP>90 Enoxaparin Sodium (Lovenox Inj) 30 mg SQ Q24H [facility] Escitalopram Oxalate (Lexapro) 10 mg PO HS [facility] Last Admin: 06/12/18 21:21 Dose: 10 mg Labetalol HCl (Trandate) 100 mg PO BID [facility] Last Admin: 06/13/18 08:13 Dose: 100 mg Lactulose (Lactulose Liq) 30 ml PO DAILY PRN PRN Reason: SEVERE CONSITIPATION Miscellaneous Information (Misc Nursing Information) 0 each OTHER UNSCH PRN PRN Reason: SEE LABEL COMMENTS Stop: 06/14/18 10:12 Ondansetron HCl (Zofran Inj) 4 mg IV.PUSH Q6H PRN PRN Reason: NAUSEA OR VOMITING Last Admin: 06/10/18 09:08 Dose: 4 mg Prochlorperazine Edisylate (Compazine Inj) 10 mg IV.PUSH Q6H PRN PRN Reason: NAUSEA OR VOMITING Last Admin: 06/10/18 22:37 Dose: 10 mg Sodium Chloride (Ns Flush) 2 ml IV.FLUSH BID [facility] Last Admin: 06/13/18 08:14 Dose: 2 ml Sodium Chloride (Ns Flush) 2 ml IV.FLUSH PRN PRN PRN Reason: FLUSH AFTER USING IV ACCESS Allergies/Adverse Reactions: Allergies Allergy/AdvReac Type Severity Reaction Status Date / Time No Known Allergies Allergy Verified 06/10/18 07:05 Review of Systems All other systems reviewed negative except as stated in HPI Physical Exam Vital signs: Vital Signs 06/12/18 16:00 06/12/18 18:07 06/12/18 20:00 Temperature 97.9 F 97.9 F Pulse Rate 80 86 Respiratory Rate 20 20 Blood Pressure 163/105 H 168/103 H Pulse Oximetry 96 96 96 06/12/18 21:20 06/13/18 00:00 06/13/18 04:00 Temperature 97.8 F 98.4 F Pulse Rate 86 68 77 Respiratory Rate 20 20 Blood Pressure 134/82 151/88 H 133/82 Pulse Oximetry 94 L 97 06/13/18 08:00 Temperature 98.4 F Pulse Rate 73 Respiratory Rate 20 Blood Pressure 155/94 H Pulse Oximetry 97 Intake & Output 06/12/18 06/13/18 06/13/18 18:59 06:59 18:59 Intake Total 360 / 360 Balance 360 / 360 Intake: Oral 360 / 360 Other: # Voids 2 2 Narrative: GENERAL: NAD, A&Ox3 HEAD: Normocephalic. NECK: Supple, trachea midline. EYES: No scleral icterus. No injection or drainage. CARDIOVASCULAR: Regular rate and rhythm RESPIRATORY: No accessory muscle use. GASTROINTESTINAL: Abdomen soft, non-tender, nondistended. MUSCULOSKELETAL: No cyanosis, or edema. SKIN: Warm and dry. NEURO: Awake alert oriented x3, monotone speech, visual porter full, no pronator drift no focal weakness no neglect - Constitutional no acute distress - Routine HEENT Exam Head: Present: normocephalic Eye: Present: EOMI Objective Laboratory Results - last 24 hr 06/10/18 06/10/18 10:00 10:00 Thrombin Time ND Lupus Anticoagulant LA PTT Screen 38 dRVVT Screen 37 LA dRVVT Confirm ND dRVVT Mix ND Hexagonal Phase Confirm ND Antithrombin III Activ 104 Factor VIII Activity 49 L Review/Management - Diagnosis (1) Acute ischemic vertebrobasilar artery cerebellar stroke Code(s): I63.29 - Cerebral infarction due to unspecified occlusion or stenosis of other precerebral arteries Status: Acute Current Visit: Yes - Review/Management Plan: imp sr so far r pica cva r vert dom echo nl ldl trop esr nl hyper and other labs pend asa 325 RAMEZ; completed this morning results pending mrv nl mri small old subcortical wm change on r parietal also consider loop also; defer to cardiology versus event monitor Discharge planning from neurology if RAMEZ negative and outpatient follow-up with Dr. Patel
--- NOTE | 2018-06-13 11:49 | ECHRPT ---
Indication: CVA/TIA CONCLUSIONS 1.) Noraml lv size, wall thickness and systolic lv function, ef=60% 2.) Normal appearing left atrial appendage 3.) Aneurysmal atrial septum 4.) Negative saline contrast buble study for intracardiac shunt 5.) normal appearing thoracic aorta BP: / HR: Rhythm: Technical Quality: Medications Complications Proc. Components Will Vasquez MD, FACC, [facility] [place] (Electronically Signed) Final Date:13 June 2018 11:48
[2018-06-13] MEDS: Enoxaparin Inj 30 MG/0.3 ML Syringe SQ SCH (14:16)
[2018-06-13] MEDS: Escitalopram 10 MG Tablet PO SCH (21:05)
--- NOTE | 2018-06-14 00:24 | HM ---
Date Performed: 06/10/2018 Time Performed: 19:57:00 HOOKUP DATE: 06/10/18 07:57:00 PM Elva ANALYSIS START TIME: 06/10/2018 8:02:00 PM ANALYSIS END TIME: 06/11/2018 6:02:00 PM PATIENT AGE: 28 PATIENT HEIGHT PATIENT WEIGHT DRUG LIST PATIENT DIAGNOSIS: medical TEST NARRATIVE: The patient's average heart rate was 81 BPM. Heart rates greater than 120 B PM were noted 1% of the time. No episodes of bradycardia were noted. No pauses exceeding 2.0 sec onds were noted. 947 ventricular ectopics, which represented 1% of the total beat count, were not ed. The highest ventricular ectopic frequency occurred from 03:00 AM to 04:00 AM Fri. During this t micky 117 VE(s) occurred. Ventricular ectopics were observed as 943 isolated beat(s) and as 2 couplet( s). No runs were noted. Some of the ventricular beats occurred in bigeminal cycles. 15 supraven tricular ectopics, which represented < 1% of the total beat count, were noted. The highest supravent ricular ectopic frequency occurred from 03:00 AM to 04:00 AM Fri. During this time 9 SVE(s) occurred . No episodes of ST depression (defined as -1.0 mm or more) were noted in channel 1. No episodes of ST depression (defined as -1.0 mm or more) were noted in channel 2. No episodes of ST depression (defined as -1.0 mm or more) were noted in channel 3. TEST INTERPRETATION: 1) Sinus rhythm with sinus arrhythmia 2) Rare PVC/PAC, 2 short episodes of bigeminy (3-4 beats), and 2 ventricular c ouplets 3) No arrhythmias noted 4) No pauses noted 5) No symptoms documented Signed by : Mychal Raines
[2018-06-14 01:26] VITALS: TEMP 98
[2018-06-14 05:08] VITALS: RESP 16
[2018-06-14 06:35] VITALS: BP 159/89; PULSE 78
[2018-06-14] MEDS ORDERED: amLODIPine 10 MG Tablet PO SCH (07:05)
[2018-06-14] MEDS ORDERED: Enoxaparin Inj 30 MG/0.3 ML Syringe SQ SCH (09:00)
--- NOTE | 2018-06-14 09:04 | P.DS ---
Date of admission: 06/12/18 15:06 Primary care physician: No Primary Care Physician Attending physician on discharge: Julian Jazzminejayla Anticipated date of discharge: 06/14/18 Brief History from admission: 28-year-old white female presented with acute onset of left-sided facial numbness tingling and aphasia with right sided weakness. Patient was in her normal state of health yesterday, other than having mild sore throat and URI type symptoms, when she woke this morning she noticed left side of her face was numb with tingling difficulty expressing herself and right-sided weakness she presented to the emergency room where her blood pressures were noted to be 198/ 115. Patient states she has been out of her blood pressure medications for a couple months because her doctor did not refill them. She is been having mild headache and intractable nausea and vomiting currently. Initial CT of the head in the emergency room was unremarked and she is admitted for further neurologic workup. 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 Patient seen and examined today. Patient states she is doing well. States that she wanted to go home today. States she has been compliant with her medications. She will be compliant when she goes home. Denies pain and discomfort. Denies SOB/ dyspnea. Denies chest pain, palpitations, headaches, dizziness. Denies fevers, chills, n/v/d. Denies hematuria, dysuria. DS: Diagnosis - Discharge Diagnosis (1) Acute ischemic vertebrobasilar artery cerebellar stroke Status: Acute (2) HTN (hypertension) Status: Acute DS: Medications - Discharge Medications Prescriptions: amlodipine [Norvasc] 10 mg PO DAILY #30 tab aspirin 325 mg PO DAILY #30 tab labetalol 100 mg PO BID #180 tab DS: Summary Hospital Course: 28-year-old white female presented with acute onset of left-sided facial numbness tingling and aphasia with right sided weakness. Patient found to have acute CVA, small right cerebral infarct on the MRI. Head/brain venography negative, head CT no acute intracranial findings, head CTA unremarkable, neck CTA negative CTA carotid. Neurologist has followed the patient and recommends permissive hypertension within the first 24 hours however will need to have a better BP control of 120s-140s. Recommending RAMEZ and possible loop recorder. Echocardiogram showed left ventricular systolic function is normal with EF 60-65 %. Left ventricular diastolic function are normal. Moderate tricuspid regurgitation. Lipid profile within normal, B12 normal, folic acid normal, TSH normal, UA normal, toxicology negative. She was started on aspirin 325 mg daily. Physical therapy, occupational therapy, speech therapy has also followed the patient. No focal neuro deficit has been noted. Patient has been taking control her CVA could possibly be related to hormonal control use vs aneurysmal atrial septum found on RAMEZ. RAMEZ has been done found to have normal LV size, wall thickness and systolic LV function with EF of 60%. Normal appearing left atrial appendage. Aneurysmal atrial septum. Negative saline contrast bubble study for intracardiac shunt, normal appearing thoracic aorta. RAMEZ results have been discussed with patient, she will need to follow- up with Dr. Raines [facility] as an outpatient for possible evaluation for a loop recorder placement. Patient has hypertension which was uncontrolled. She was counseled about BP medication compliance and risk for discontinuation of the medication. She was started on Norvasc 5 mg daily, labetalol 100 mg twice a day. Her Norvasc was increased to 10 mg daily and labetalol dose remains the same. Her medications needs to be adjusted in the outpatient if necessary. This is been discussed extensively with her. We recommend control needed in the future to pursue copper IUD with no hormone. She had past medical history of asthma which was not on exacerbation during hospitalization. She also has depression were and she continued to use her Lexapro. Her hemoglobin A1c was checked and it was 4.6. Patient has met maximal benefits of hospitalization. Clinically stable for discharge. She will need to follow-up with her PCP in the outpatient setting to continue to monitor her BP trend and adjust her BP medications. She will follow-up with neurologist, also with Dr. Raines, color print inspector. - Time Spent with Patient Total time spent providing and/or coordinating discharge services: Less than 30 minutes - Quality: Stroke Last date observed well: 06/09/18 Last time observed well: 23:00 - Quality: VTE Deep Vein Thrombosis/Pulmonary Embolism Present on Admission: No Exam Vital signs: Vital Signs 06/13/18 10:13 06/13/18 10:15 06/13/18 10:30 Temperature 98.1 F Pulse Rate 90 80 67 Respiratory Rate 15 22 14 Blood Pressure 139/69 121/82 135/86 Pulse Oximetry 98 98 99 06/13/18 12:00 06/13/18 16:00 06/13/18 20:00 Temperature 98.1 F 98.0 F 98.5 F Pulse Rate 73 64 77 Respiratory Rate 20 20 20 Blood Pressure 130/79 146/79 H 155/98 H Pulse Oximetry 94 L 97 95 06/14/18 00:00 06/14/18 04:00 06/14/18 06:00 Temperature 98.0 F 98.0 F Pulse Rate 75 70 78 Respiratory Rate 18 16 Blood Pressure 153/82 H 161/95 H 159/89 H Pulse Oximetry 98 95 Intake & Output 06/13/18 06/14/18 06/14/18 18:59 06:59 18:59 Intake Total 1999 Balance 1999 Intake: Oral 1999 Other: # Voids 2 Narrative: GENERAL: This is a overweight, well-developed patient, in no apparent distress. SKIN: Warm and dry. HEENT: Normocephalic. Pupils equal round and reactive. Nose without bleeding. Airway patent. NECK: Trachea midline. CARDIOVASCULAR: Regular rate and rhythm without murmurs, gallops, or rubs. RESPIRATORY: Clear to auscultation. Breath sounds equal bilaterally. No wheezes , rales, or rhonchi. GASTROINTESTINAL: Abdomen soft, non-tender, nondistended. Bowel Sounds normoactive x4. MUSCULOSKELETAL: Extremities without clubbing, cyanosis, or edema. NEUROLOGICAL: Awake and alert. Oriented to time, place, person. No focal neuro deficit. Moves all extremities. Normal speech. No ataxic gait, able to ambulate. Results Procedures completed during hospitalization: RAMEZ 06/13/18 Completed studies during hospitalization: Echocardiogram Labs on day of discharge: Labs from last 24 hours 06/10/18 10:00 Beta-2-GPI IgG Ab <9 Beta-2-GPI IgA Ab <9 Beta-2-GPI IgM Ab <9 Phosphatidylserine IgG Less than 10.0 Phosphatidylserine IgA Less than 20.0 Phosphatidylserine IgM Less than 25.0 Prothrombin [id number] Mut - Impressions ITS Impressions Head/Brain Mag Res Venography 06/10/18 00:00 CONCLUSION: Negative Head CT 06/10/18 07:11 CONCLUSION: No acute intracranial findings Report was called by [Yanci to Luis Armando at 7:26 AM ] Head CTA 06/10/18 07:11 CONCLUSION: 1. Unremarkable CTA examination of the head. Specifically, no evidence for large vessel occlusion. Report was called by [ ]Dr. Laws to Dr. Patel at 7:45 AM. Neck CTA 06/10/18 07:11 CONCLUSION: Negative CTA Carotid. Head MRI 06/10/18 08:26 CONCLUSION: 1. Likely small early subacute right cerebellar infarct 2. Mild patchy white matter signal change Discharge Plan - Discharge Disposition Patient Disposition: 01 Discharge Home - Discharge Condition Condition: Stable - Discharge Order Discharge Orders: Discharge Order (Routine); Ordered 06/14/18 Ordered By: Humza Oscar - Discharge Details Discharge Comment: DC after am meds please recheck BP - Physicians Team Primary Care Provider: Primary Care Ana Robb Attending Provider: Julian Mendoza Other Providers: Will Vasquez MD
[2018-06-14 10:08] VITALS: O2SAT 96
[2018-06-14] MEDS: Labetalol 100 MG Tablet PO SCH (10:15)
[2018-06-14 15:30] LABS: Factor V Leiden Mutation Negative (Negative); Protein C Antigen 85 % (70-150)
[2018-06-15 03:51] LABS: Activated Protein C Resistance 4.7 ratio (> OR = 2.1)
[2018-06-16 12:01] LABS: Methylmalonic Acid 0.2 nmol/mL (<=0.40)
== END 2018-06-14 12:15 | disposition home or self-care (01) ==
LOC: NEPE 06:26 → NEDA 06:26 → N05 13:30
PROVIDERS: ADMIT Internal Medicine; ATTEND Internal Medicine